=== PATIENT | male | born 1955 | race Two or more races ===

== ENCOUNTER 2025-06-24 16:31 | Emergency (ER) | payer MEDICARE, SELFPAY ==
--- NOTE | 2025-06-24 16:37 | EKG_ITS ---
[facility] Test Date: 2025-06-24 Pat Name: ANSLEY JADE Department: Room: - Gender: Male Carrier Associate: : 1955 Requested By: Zain Hill Order Number: [id number] Reading MD: Zain Hill Measurements Intervals Cord Rate: 69 P: 31 WI: 174 QRS: 3 QRSD: 85 T: 38 QT: 375 QTc: 404 Interpretive Statements SINUS RHYTHM Compared to ECG 03/03/2024 06:36:55 Myocardial infarct finding no longer present /store/[id number].pdf
[2025-06-24 16:48] VITALS: BP 144/93; PULSE 78; RESP 18; TEMP 36.8; O2SAT 95; BMI 27.6
--- NOTE | 2025-06-24 17:07 | PD.EDRME ---
Rapid Medical Screening Exam RME Arrival date/time: 06/24/25 16:31 Chief Complaint: Chest Pain Vital signs: Vital Signs Temperature 98.3 F 06/24/25 16:48 Pulse Rate 78 06/24/25 16:48 Respiratory Rate 18 06/24/25 16:48 Blood Pressure 144/93 H 06/24/25 16:48 Pulse Oximetry (%) 95 06/24/25 16:48 Oxygen Delivery Method Room Air 06/24/25 16:48 RME Narrative: 69-year-old male complaining of left-sided stabbing chest pain which started an hour ago when he was watching TV associated with shortness of breath and nausea. I briefly performed a screening evaluation to initiate work-up and expedite care. Complete history, physical exam, and plan of care is deferred to the provider in the main ED. Exam: Head: Normocephalic, atraumatic. Respiratory: Normal effort. No respiratory distress or accessory muscle use. Neuro: Speech normal. Skin: Warm, dry, normal color. Psych: Pleasant. Normal affect. Cooperative. Clinical Impression: Chest pain rule out ACS
--- NOTE | 2025-06-24 17:10 | XR_ITS ---
EXAMINATION: PA lateral chest 2 views TECHNIQUE: Upright PA lateral chest 2 views Date and time: June 24, 2025, 1715 hours INDICATIONS: Chest pain weakness today. FINDINGS: Normal heart size Ectatic thoracic aorta. No pneumonia or pulmonary edema The Nixon structures are intact IMPRESSION: No active disease
[2025-06-24 17:42] LABS: Basophils # (Auto) 0.0 Thou/mm3 (0.0-0.2); Basophils % (Auto) 0 % (0-2.5); Eosinophils # (Auto) 0.2 Thou/mm3 (0.0-0.5); Eosinophils % (Auto) 3 % (0-10); Hematocrit 43.3 % (41.0-53.0); Hemoglobin 14.9 g/dL (13.5-16.0); Immature Granulocytes Auto 0.02 Thou/mm3 (0.00-0.00); Lymphocytes # (Auto) 1.8 Thou/mm3 (1.0-4.8); Lymphocytes % (Auto) 24 % (10-50); Mean Corpuscular HGB Conc 34.4 g/dl (31.0-37.0); Mean Corpuscular Hemoglobin 30.0 pg (25.0-35.0); Mean Corpuscular Volume 87 fL (80-100); Monocytes # (Auto) 0.6 Thou/mm3 (0.0-0.8); Monocytes % (Auto) 9 % (0-12); Neutrophils # (Auto) 4.9 Thou/mm3 (1.8-7.7); Neutrophils % (Auto) 65 % (37-80); Nucleated Red Blood Cell # 0.00 Thou/mm3 (0.00-0.00); Nucleated Red Blood Cell % 0 /100 WBC (0); Platelet Count 231 Thou/mm3 (140-440); RDW Standard Deviation 40.8 fL (35.1-43.9); Red Blood Count 4.96 Miln/mm3 (4.50-5.90); White Blood Count 7.5 Thou/mm3 (3.8-10.6)
[2025-06-24 18:00] LABS: INR 1.0 (0.9-1.3); Prothrombin Time 10.4 Seconds (9.0-12.2)
[2025-06-24 18:04] LABS: B-Type Natriuretic Peptide < 20 pg/mL (0-100)
[2025-06-24 18:07] LABS: Alanine Aminotransferase 11 U/L (10-49); Albumin, Serum 4.5 gm/dL (3.4-4.8); Albumin/Globulin Ratio 1.6 (1.2-2.2); Alkaline Phosphatase 83 U/L (46-116); Anion Gap 9 (7-16); Aspartate Amino Transferase 14 U/L (0-34); BUN/Creatinine Ratio 19 Ratio (12-20); Bilirubin,Total 0.4 mg/dL (0.3-1.2); Blood Urea Nitrogen 15 mg/dL (9-23); Calcium 9.3 mg/dL (8.3-10.6); Calcium (Corrected) 9.3 mg/dL (8.5-10.1); Carbon Dioxide 26.9 mMol/L (20.0-31.0); Chloride 106 mMol/L (98-107); Creatinine (Component) 0.8 mg/dL (0.6-1.3); Estimated Creatinine Clearance 73.1 mL/min (>60); Globulin 2.9 gm/dL (2.3-3.5); Glucose 90 mg/dL (74-106); Lipase 32 U/L (12-53); Osmolality,Calculated 283 (275-295); Potassium 3.9 mMol/L (3.4-5.1); Sodium 142 mMol/L (136-145); Total Protein 7.4 gm/dL (5.7-8.2); Troponin I < 0.020 ng/mL (0.0-0.045); eGFR > 60 See Note
--- NOTE | 2025-06-24 19:11 | PD.EDCHEST ---
ED Chest Pain RME/HPI General Chief Complaint: Chest Pain Stated Complaint: Chest pain and numbness to his face X 1 hour Time Seen by Provider: 06/24/25 17:09 Arrival date/time: 06/24/25 16:31 RME / HPI RME / HPI narrative: 69-year-old male complaining of left-sided stabbing chest pain which started an hour ago when he was watching TV associated with shortness of breath and nausea. I briefly performed a screening evaluation to initiate work-up and expedite care. Complete history, physical exam, and plan of care is deferred to the provider in the main ED. See [facility] for Dr. Flowers's HPI Documentation. Exam: Head: Normocephalic, atraumatic. Respiratory: Normal effort. No respiratory distress or accessory muscle use. Neuro: Speech normal. Skin: Warm, dry, normal color. Psych: Pleasant. Normal affect. Cooperative. Impression: Chest pain rule out ACS Related Data Allergies Allergy/AdvReac Type Severity Reaction Status Date / Time NKA* Allergy Uncoded 06/24/25 16:35 Review of Systems Review of Systems Systems Reviewed: All systems reviewed, normal except as documented Past Medical History Past Medical History CARDIAC: Positive Hypertension ED Exam Narrative Physical exam: See [facility] for Dr. Flowers's Physical Exam Documentation. Course Quality Measures none Orders Category Date Time Status Continuous EKG monitoring NOW Care 06/24/25 17:10 Completed Continuous Pulse Oximetry NOW Care 06/24/25 17:10 Completed EKG (ED ONLY) *Do not use* NOW Care 06/24/25 16:37 Completed EKG (ED Only) Stat Exams 06/24/25 16:37 Draft XR chest 2V Stat Exams 06/24/25 17:10 Completed B-Type Natriuretic Peptide Stat Lab 06/24/25 17:30 Completed CBC Stat Lab 06/24/25 17:30 Completed Comprehensive Metabolic Panel Stat Lab 06/24/25 17:30 Completed INR [Prothrombin Time with INR] Stat Lab 06/24/25 17:30 Completed Lipase Stat Lab 06/24/25 17:30 Completed Troponin I Stat Lab 06/24/25 17:30 Completed Vital Signs Vital signs: Vital Signs Temperature 98.3 F 06/24/25 16:48 Pulse Rate 78 06/24/25 16:48 Respiratory Rate 18 06/24/25 16:48 Blood Pressure 144/93 H 06/24/25 16:48 Pulse Oximetry (%) 95 06/24/25 16:48 Oxygen Delivery Method Room Air 06/24/25 16:48 Chest Pain MDM Narrative MDM Narrative:: This section includes all my notes and documentations, including HPI, PE, and ED course. Jay Flowers MD HPI: 69 y/o male with Hx of HTN presents with intermittent left-sided chest pain for several days. No shortness of breath. No unusual fatigue or malaise. No palpitations. No nausea or vomiting. No other complaints. ROS: All negative except as documented in HPI. Physical Exam: General: Alert and oriented. No acute distress when remaining still. Eyes: Conjunctivae and lids clear. ENT: No nasal congestion. Neck: Supple. Heart: RRR. Lungs: No respiratory distress. Good air movement. No rhonchi, wheezing, rales. Abdomen: Soft and nontender. Skin: Warm and dry. Neuro: Alert and oriented X 3. I reviewed all diagnostic test results: My interpretation of the EKG is: Sinus rhythm (69 bpm) with nonspecific ST-T changes. My interpretation of the chest x-ray is: NAD. Blood tests unremarkable. At this point, diagnoses include: Chest Pain of unclear etiology Recommended more outpatient cardiac workup. Based on my best medical judgment, made decision no further evaluation or treatment indicated at this time. Patient understands and agrees to the discharge instructions customized and printed, see below. Discharge instructions from Dr. Flowers: 1. After extensive evaluation, there is no life-threatening condition.? Such as heart attack or pulmonary embolism (blood clots in your lungs) or pneumothorax (collapsed lung). 2. Your pain can be originating from the chest wall and not from an internal organ.? The chest wall has many joints and muscles between the ribs, so sprains and strains are common.?? 3. Apply ice or heat if helpful.? Tylenol/ibuprofen as needed. 4. See a private doctor on 06/25/2025. To make sure there is no serious underlying heart condition, ask to help you get more tests for your heart that cannot be done here in the ER.? Such as Holter Monitor (cardiac monitoring at home from a day to even a month), heart stress test (on treadmill or with medication), echocardiogram (imaging of your heart structures), heart catherization (checking for blockages in your heart arteries), and a referral to see a Unloader Operator.? 5. Seek immediate medical care with worsening or with any concerns.? Jay Flowers MD Patient data External records reviewed:: [facility] previous records (Reviewed prior ED records from 03/03/24. Patient was seen for Vertigo.) Clinical information provided by:: patient Social determinants that could affect healthcare access:: none Patient has the following chronic illnesses:: HTN How is presenting disease/condition affected by chronic disease/condition?: exacerbated by Evaluation data The following diagnostics were reviewed and interpreted by me:: lab results, radiology exam(s) and EKG tracing(s) (My interpretation of the EKG is: Sinus rhythm (69 bpm) with nonspecific ST-T changes. Jay Flowers MD) Lab and/or radiology exams considered but not ordered:: None Interpretation Summary: I reviewed all diagnostic test results: My interpretation of the EKG is: Sinus rhythm (69 bpm) with nonspecific ST-T changes. My interpretation of the chest x-ray is: NAD. Blood tests unremarkable. Medications / Prescriptions Medications or Prescriptions considered but not ordered:: None Medication administrations:: None Consultations Consultation(s) initiated? (list below): No Diagnosis Chest Pain Differential Diagnosis: stable angina, unstable angina pectoris, atypical chest pain, st elevation myocardial infarction, costochondritis, chest pain and biliary colic Most likely diagnosis given after review of the tests above:: Chest Pain of unclear etiology Admission Indicated Admission indicated?: not indicated Explain why admission is indicated or not indicated:: With no condition needing emergent intervention, there was no indication for admission. Admission Request Was there a request for admission?: No Disposition Plan Disposition Plan: Discharge Discharge Attestation Discharge Attestation: The patient and all family members were given an opportunity to ask questions and understood the discharge instructions. Discharge instructions specifically effects, indications for sooner follow up or return to the emergency department, and the expected course of current diagnosis. Patient condition: Stable Discharge Plan Plan Patient Disposition: HOME (Self Care) Prescriptions/Referrals Referrals: Bertin Oneil MD [Primary Care Provider, Family Practice] - In 1 week Problem List Clinical Impression: Chest pain Patient/Caregiver Discharge Instructions Discharge Activity: activity as tolerated Education Materials: ED Chest Pain, Uncertain Cause Additional Instructions: Discharge instructions from Dr. Flowers: 1. After extensive evaluation, there is no life-threatening condition.? Such as heart attack or pulmonary embolism (blood clots in your lungs) or pneumothorax (collapsed lung). 2. Your pain can be originating from the chest wall and not from an internal organ.? The chest wall has many joints and muscles between the ribs, so sprains and strains are common.?? 3. Apply ice or heat if helpful.? Tylenol/ibuprofen as needed. 4. See a private doctor on 06/25/2025. To make sure there is no serious underlying heart condition, ask to help you get more tests for your heart that cannot be done here in the ER.? Such as Holter Monitor (cardiac monitoring at home from a day to even a month), heart stress test (on treadmill or with medication), echocardiogram (imaging of your heart structures), heart catherization (checking for blockages in your heart arteries), and a referral to see a Unloader Operator.? 5. Seek immediate medical care with worsening or with any concerns.?? Instrucciones de francisca del Dr. Flowers: 1. Tras lauren evaluaci?n exhaustiva, no se detect? ninguna afecci?n que ponga en peligro fields gregorio, tommy un ataque card?aco, lauren embolia pulmonar (co?gulos de barb en los pulmones) o un neumot?rax (colapso pulmonar). 2. Fields dolor puede provenir de la pared tor?cica y no de un ?rgano interno. La pared tor?cica tiene muchas articulaciones y m?sculos entre las costillas, por lo que los esguinces y las distensiones son comunes. 3. Aplique hielo o calor si le resulta ?til. [place] paracetamol/ibuprofeno seg?n sea necesario. 4. Consulte con un m?dico particular el 06/25/2025. Para asegurarse de que no haya ninguna afecci?n card?mey subyacente grave, solicite que le realicen pruebas card?acas adicionales que no se pueden realizar aqu? en la stevenson de emergencias. Estas pruebas incluyen: monitor Holter (monitoreo card?aco en casa frantz un d?a o incluso un mes), prueba de esfuerzo card?aco (en cinta de correr o con medicamentos), ecocardiograma (im?genes de las estructuras del coraz?n), cateterismo card?aco (para detectar obstrucciones en las arterias coronarias) y lauren derivaci?n a un cardi?logo. 5. Busque atenci?n m?dica de inmediato si mary s?ntomas empeoran o si tiene alguna inquietud. Print Language: Occitan Stand Alone Forms: Amanda Award Info., Patient Portal Info Letter
[2025-06-24 19:21] VITALS: BP 148/81; PULSE 71; RESP 16; TEMP 36.7; O2SAT 96
[2025-06-24 19:30] VITALS: BP 148/81; PULSE 71; RESP 18; TEMP 36.7; O2SAT 96
== END 2025-06-24 19:31 | disposition home or self-care (01) ==
PROVIDERS: Physician Assistant; Emergency Provider Emergency Medicine; PCP Family Medicine
DX: R07.89 Other chest pain (principal); I10 Essential (primary) hypertension
CPT/HCPCS: 36415; 71046; 80053; 83690; 83880; 84484; 85025; 85610; 93005; 99283